=== PATIENT | female | born 1995 | race Caucasian/White ===

== ENCOUNTER 2019-10-05 17:26 | Emergency (ER) | payer MEDICAID ==
[2019-10-05] MEDS ORDERED: IBUPROFEN 600 MG TABLET PO ONE (17:37)
--- NOTE | 2019-10-05 17:40 | Emergency Department Record ---
History of Present Illness - General Chief Complaint: Laceration(s) Stated Complaint: HAND LAC Time Seen by Provider: 10/05/19 17:36 Source: Patient Mode of Arrival: Ambulatory Limitations: No limitations - History of Present Illness Initial Commments: 23 yo female presents after falling into a mirror with her right hand. The injury occurred about 3pm. She has numerous small lacerations that have stopped bleeding. She has some ulnar wrist pain with bruising as well. Her tetanus is up to date. She has some tingling from the bruise distal (no laceration in that area to suggest nerve laceration). She is right handed. -: Hour(s) (2) Extremity Location: Right: Wrist Place: Home Context: Accidental Associated Symptoms: None, Other (tingling) - Juan Coma Scale Eye Response: (4) Open spontaneously Motor Response: (6) Obeys commands Verbal Response: (5) Oriented Juan Total: 15 - Related Data Hx Tetanus Toxoid Vaccination: Yes Patient Tetanus UTD (within 5 yrs): Yes Home Medications Medication Instructions Recorded Confirmed Last Taken Phenytoin Sodium Extended 200 mg PO DAILY 10/05/19 10/05/19 10/05/19 [Dilantin] Sertraline HCl [Zoloft] 100 mg PO DAILY 10/05/19 10/05/19 10/04/19 Allergies Allergy/AdvReac Type Severity Reaction Status Date / Time No Known Drug Allergies Allergy Verified 10/05/19 17:38 Review of Systems Constitutional: Denies: Chills, Fever, Malaise, Weakness Eyes: Denies: Eye discharge ENT: Denies: Congestion, Throat pain Respiratory: Denies: Cough Cardiovascular: Denies: Chest pain, Palpitations, Syncope Endocrine: Denies: Fatigue Gastrointestinal: Denies: Abdominal pain, Diarrhea, Nausea, Vomiting Genitourinary: Denies: Dysuria, Urgency Musculoskeletal: Reports: Arthralgia, Joint swelling Skin: Reports: Other Neurological: Reports: Tingling. Denies: Numbness, Weakness Psychiatric: Denies: Anxiety Hematological/Lymphatic: Denies: Easy bleeding, Easy bruising Physical Exam - General General Appearance: Alert, Oriented x3, Cooperative, No acute distress Limitations: No limitations - Head Head exam: Atraumatic, Normal inspection - Eye Eye exam: Normal appearance. negative: Conjunctival injection - ENT ENT exam: Normal exam Ear exam: Normal external inspection Nasal Exam: Normal inspection Mouth exam: Normal external inspection - Neck Neck exam: Normal inspection - Cardiovascular Cardiovascular Exam: Regular rate Peripheral Pulses: 2+: Radial (R) - Rectal Rectal exam: Deferred - exam: Deferred - Extremities Extremities exam: negative: Normal inspection Image of Hand: 1 - 3mm abrasion 2 - 5mm superficial laceration 3 - 1cm flap laceration, superficial 4 - 3mm abrasion 5 - superfical abrasion 6 - tender, bruisinig, mild swelling 7 - tingling subjectively along ulnar side from the bruise distally, intact to light touch - Back Back exam: Reports: Full ROM. Denies: Tenderness - Neurological Neurological exam: Alert, Normal gait, Oriented X3. negative: Altered - Psychiatric Psychiatric exam: Normal affect, Normal mood. negative: Agitated, Anxious - Skin Skin exam: Abrasion, Other (multiple small lacerations) Type of lesion: Laceration Course - Reevaluation(s) Reevaluation #1: 10/05/19 17:56 No lacerations require closure No FB visible in the laceration Tetanus is up to date Disposition Disposition: Discharge Clinical Impression: Wrist sprain Qualifiers: Encounter type: initial encounter Laterality: right Qualified Code(s): S63.501A - Unspecified sprain of right wrist, initial encounter Lacerations of multiple sites of right arm Qualifiers: Encounter type: initial encounter Qualified Code(s): S41.111A - Laceration without foreign body of right upper arm, initial encounter Disposition: Home, Self-Care Condition: (1) Good Instructions: Wrist Sprain (ED) Additional Instructions: Clean the small lacerations daily with mild soap and water Be seen immediately if you have any concerns for infection or a glass that was not seen on today's Xray Ice any sore areas Forms: Patient Portal Access Time of Disposition: 18:35 Quality - Quality Measures Quality Measures: N/A - Blood Pressure Screening Does Patient Have Any of the Following: No Blood Pressure Classification: Hypertensive Reading Systolic Measurement: 146 Diastolic Measurement: 109 Screening for High Blood Pressure: < Pre-Hypertensive BP, F/U Documented > [G8950] Pre-Hypertensive Follow-up Interventions: Referral to alternative/primary care provider.
--- NOTE | 2019-10-05 18:31 | RADIOLOGY REPORT ---
EXAMINATION: Right Hand, Minimum Three Views EXAM DATE: 10/05/2019 6:14 PM TECHNIQUE: PA, lateral, and oblique INDICATION: laceration ro FB, broken mirror COMPARISON: None ENCOUNTER: Initial FINDINGS: No acute fracture or dislocation. Alignment of the hand is good. No radiopaque foreign body. IMPRESSION: 1. No acute fracture. 2. No radiopaque foreign body. Dictated by: Johnson Zuñiga MD on 10/05/2019 6:26 PM. .
== END 2019-10-05 18:44 | disposition home or self-care (01) ==
LOC: ER 17:26
DX: S61.212A Laceration without foreign body of right middle finger without damage to nail, initial encounter (principal); S61.214A Laceration without foreign body of right ring finger without damage to nail, initial encounter; S63.501A Unspecified sprain of right wrist, initial encounter; S60.811A Abrasion of right wrist, initial encounter; S60.511A Abrasion of right hand, initial encounter; W01.0XXA Fall on same level from slipping, tripping and stumbling without subsequent striking against object, initial encounter; Y93.E6 Activity, residential relocation; Y92.009 Unspecified place in unspecified non-institutional (private) residence as the place of occurrence of the external cause
CPT/HCPCS: 99284

== ENCOUNTER 2019-11-17 18:01 | Emergency (ER) | payer SELFPAY ==
[2019-11-17] MEDS ORDERED: KETOROLAC 30 MG/ML VIAL IVP ONE (18:15)
[2019-11-17] MEDS ORDERED: ONDANSETRON HCL IV 4 MG/2 ML VIAL IVP ONE (18:15)
[2019-11-17] MEDS ORDERED: 0.9 % SODIUM CHLORIDE 1000ML 1,000 ML IV SCH (18:15)
--- NOTE | 2019-11-17 18:23 | Emergency Department Record ---
History of Present Illness - General Chief complaint: Flank Pain Stated complaint: KIDNEY PAIN Time Seen by Provider: 11/17/19 18:02 Source: Patient Mode of Arrival: Ambulatory Limitations: No limitations - History of Present Illness Initial comments: 24 yo female presents to ED for evaluation of continued right sided flank/abdominal pain following diagnosis of a kidney stone 3 days ago at [facility]. Patient reports that she underwent US imaging demonstrating evidence for kidney stone, reports she was told that her stone would pass in 24 hours however the patient reports that she is not feeling well following her initial examination. Patient reports a long history of kidneys tones but has not seen a urologist previously. Patient denies fevers, chills, or dysuria symptoms on examination. Onset/Timin -: Days(s) Radiation: R flank Severity: Mild Severity scale (1-10): 4 Quality: Sharp Consistency: Constant Improves with: None Worsens with: None Patient : No Associated Symptoms: Denies other symptoms - Related Data Previous Rx's Medication Instructions Recorded Cephalexin [Keflex] 500 mg PO TID #21 cap 11/17/19 Allergies Allergy/AdvReac Type Severity Reaction Status Date / Time No Known Drug Allergies Allergy Verified 11/17/19 18:05 Travel/Exposure Screening - Travel/Exposure Within Last 30 Days Have you traveled within the last 30 days?: No - Additonal Travel/Exposure Details Have you been exposed to anyone with a communicable illness?: No Review of Systems Constitutional: Denies: Chills, Fever, Malaise, Night sweats Eyes: Denies: Eye discharge, Eye pain ENT: Denies: Congestion, Ear pain, Epistaxis Respiratory: Denies: Cough, Dyspnea Cardiovascular: Denies: Chest pain, Dyspnea on exertion Endocrine: Denies: Fatigue, Heat or cold intolerance Gastrointestinal: Reports: Abdominal pain, Nausea. Denies: Constipation, Vomiting Genitourinary: Denies: Incontinence, Retention Musculoskeletal: Reports: Back pain. Denies: Arthralgia, Gout Skin: Denies: Bruising, Change in color Neurological: Denies: Abnormal gait, Confusion, Headache, Tingling, Tremors Psychiatric: Denies: Anxiety Hematological/Lymphatic: Denies: Anemia, Blood Clots Past Medical History - SOCIAL HISTORY Smoking Status: Current every day smoker Alcohol Use: None Drug Use: None - RESPIRATORY Hx Respiratory Disorders: No - CARDIOVASCULAR Hx Cardio Disorders: No Comment:: murmer - NEURO Hx Neuro Disorders: Yes Hx Seizures: Yes - GI Hx GI Disorders: No - Hx Genitourinary Disorders: No - ENDOCRINE Hx Endocrine Disorders: No - MUSCULOSKELETAL Hx Musculoskeletal Disorders: No - PSYCH Hx Psych Problems: Yes Hx Anxiety: Yes - HEMATOLOGY/ONCOLOGY Hx Hematology/Oncology Disorders: No Family Medical History Any Significant Family History?: No Physical Exam - General General Appearance: Alert, Oriented x3, Cooperative, Mild distress Limitations: No limitations - Head Head exam: Atraumatic, Normocephalic, Normal inspection Head exam detail: negative: Abrasion, Contusion, San's sign, General tenderness, Hematoma, Laceration - Eye Eye exam: Normal appearance. negative: Conjunctival injection, Periorbital swelling, Periorbital tenderness, Scleral icterus - ENT Ear exam: negative: Auricular hematoma, Auricular trauma Nasal Exam: negative: Active bleeding, Discharge, Dried blood, Foreign body Mouth exam: negative: Drooling, Laceration, Muffled voice, Tongue elevation - Neck Neck exam: Normal inspection. negative: Meningismus, Tenderness - Respiratory Respiratory exam: Normal lung sounds bilaterally. negative: Respiratory distress, Rhonchi, Stridor, Wheezes - Cardiovascular Cardiovascular Exam: Regular rate, Normal rhythm, Normal heart sounds - GI/Abdominal GI/Abdominal exam: Soft. negative: Distended, Rebound, Rigid, Tenderness - Rectal Rectal exam: Deferred - exam: Deferred - Extremities Extremities exam: Normal inspection. negative: Pedal edema, Tenderness - Back Back exam: Reports: CVA tenderness (R). Denies: CVA tenderness (L) - Neurological Neurological exam: Alert, Normal gait, Oriented X3 - Psychiatric Psychiatric exam: Flat affect - Skin Skin exam: Normal color. negative: Abrasion Type of lesion: negative: abrasion Course Vital Signs 11/17/19 18:03 Temperature 98.0 F Pulse Rate 93 H Respiratory 20 Rate Blood Pressure 147/96 Pulse Ox 99 - Reevaluation(s) Reevaluation #1: 11/17/19 18:20 Patient was seen and examined WIll obtain UA, laboratory studies, and perform CT imaging to assess for possible retained ureteral calculi. Records from [facility] were ordered as well. Will administer Toradol, Zofran and reassess pending her ED work-up. Reevaluation #2: 11/17/19 18:32 Records were obtained from [facility], UA appears negative for infection US demonstrates mild hydronephrosis right c/w probable ureteral calculus. Will continue current ED evaluation as ordered. Reevaluation #3: 11/17/19 19:06 Laboratory studies were reviewed and appear grossly unremarkable for an acute process except for the following: UA appears contaminated Will attempt to obtain repeat UA. Reevaluation #4: 11/17/19 20:10 Repeat UA: >50 RBCs 2-5 WBCs 10-15 epithelial cells few Bacteria CT Abdomen and Pelvis: Mild right hydronephrosis No intra-ureteral calculi is present on examination Findings appear c/w recently passed right ureteral calculi Non-obstructing calculi in the kidneys bilaterally Patient as updated on all results, will treat for possible UTI vs. Pyelnephritis with Rocephin/Keflex No obstructing calculi is present on examination. Patient is in agreement with the plan of care as discussed. Medical Decision Making - Lab Data Result diagrams: 11/17/19 18:25 11/17/19 18:25 Disposition Disposition: Discharge Clinical Impression: Pyelonephritis Disposition: Home, Self-Care Condition: (2) Stable Instructions: Kidney Infection (ED) Additional Instructions: Return to ED if your symptoms worsen or if you have any concerns. Keflex, Motrin as directed. Follow-up with your family doctor in 3-5 days as directed. Prescriptions: Cephalexin [Keflex] 500 mg PO TID #21 cap Forms: Patient Portal Access Time of Disposition: 20:13 Quality - Quality Measures Quality Measures: N/A - Blood Pressure Screening Does Patient Have Any of the Following: No Blood Pressure Classification: Hypertensive Reading Systolic Measurement: 147 Diastolic Measurement: 96 Screening for High Blood Pressure: < First Hypertensive BP, F/U Documented > [G8950] First Hypertensive Follow-up Interventions: Referral to alternative/primary care provider.
[2019-11-17 18:38] LABS: ABSOLUTE NEUTROPHIL COUNT 6.76; BASO % 0.1 % (0-6); GRAN % 72.5 % (47-80); HEMATOCRIT 39.1 % (35.0-47.0); HEMOGLOBIN 13.8 gm/dl (11.6-16.0); LYMPH % 15.4 % (16-45); MEAN CELL VOLUME 88.7 fl (81-97); MEAN CORPUSCULAR HEMOGLOBIN 31.3 pg (27-33); MEAN CORPUSCULAR HGB CONC 35.3 g/dl (32-36); MEAN PLATELET VOLUME 9.6 fl (7.4-10.4); PLATELET COUNT 234 K/uL (130-400); RED BLOOD COUNT 4.41 M/uL (3.80-5.40); RED CELL DISTRIBUTION WIDTH 13.2 % (11.5-14.5); WHITE BLOOD COUNT W/O DIFF 9.3 K/uL (4.2-12.2)
[2019-11-17 18:51] LABS: BLOOD UREA NITROGEN 10 mg/dL (6-20)
[2019-11-17 18:52] LABS: CREATININE 1.1 mg/dL (0.5-0.9); EST GLOMERULAR FILTRATION RATE > 60 mL/min; TOTAL PROTEIN 6.9 g/dL (6.6-8.7)
[2019-11-17 18:54] LABS: GLUCOSE,RANDOM 79 mg/dL (74-109)
[2019-11-17 18:54] LABS: URINE BILIRUBIN NEGATIVE (NEGATIVE); URINE BLOOD LARGE (NEGATIVE); URINE COLOR YELLOW; URINE GLUCOSE (UA) NEGATIVE (NEGATIVE); URINE KETONE NEGATIVE (NEGATIVE); URINE LEUKOCYTE ESTERASE SMALL (NEGATIVE); URINE NITRITE NEGATIVE (NEGATIVE); URINE UROBILINOGEN 0.2 E.U./dL (0.20 - 1.00)
[2019-11-17 18:57] LABS: ALB/GLOB RATIO 1.3 (1.1-1.8); ALBUMIN 3.9 g/dL (4.0-5.0); ALKALINE PHOSPHATASE 68 U/L (35-104); ALT/SGPT 9 U/L (<33); AST/SGOT 15 U/L (10.0-35.0)
[2019-11-17 18:57] LABS: HCG,QUALITATIVE URINE NEGATIVE (NEGATIVE); URINE APPEARANCE CLOUDY
[2019-11-17 19:01] LABS: URINE AMORPHOUS SEDIMENT 3+; URINE BACTERIA 2+; URINE RBC 21 - 35 (NONE SEEN)
[2019-11-17 19:48] LABS: URINE APPEARANCE CLOUDY; URINE BILIRUBIN NEGATIVE (NEGATIVE); URINE BLOOD LARGE (NEGATIVE); URINE COLOR YELLOW; URINE GLUCOSE (UA) NEGATIVE (NEGATIVE); URINE KETONE NEGATIVE (NEGATIVE); URINE LEUKOCYTE ESTERASE SMALL (NEGATIVE); URINE NITRITE NEGATIVE (NEGATIVE); URINE PROTEIN NEGATIVE (NEGATIVE); URINE UROBILINOGEN 0.2 E.U./dL (0.20 - 1.00)
[2019-11-17 19:54] LABS: URINE RBC >50 (NONE SEEN)
--- NOTE | 2019-11-17 19:54 | CT SCAN REPORT ---
EXAMINATION: CT Abdomen and Pelvis without IV Contrast EXAM DATE: 11/17/2019 7:34 PM TECHNIQUE: Standard protocol CT imaging of the abdomen and pelvis was performed without intravenous c ontrast. INDICATION: Right sided flank pain COMPARISON: None ENCOUNTER: Initial- CT ABDOMEN AND PELVIS FINDINGS: Lung Bases: Included extent of the lung bases are clear. Hepatobiliary: The liver has a normal size with a smooth surface. The gallbladder is normal. Pancreas: The pancreas is normal. Spleen: The spleen is not enlarged. Adrenals: The adrenal glands are normal. Kidneys, Ureters, & Bladder: Both kidneys have a normal size and morphology. There is mild right hydr onephrosis. 3 mm nonobstructing right midpole calculus and 2.5 mm nonobstructing left upper pole calc ulus. There is mild prominence of the proximal right ureter. No convincing intraureteral calculus is demonstrated. Two small calcifications adjacent to the right aspect of the uterus are attributed to c alcified phleboliths. Left ureter is normal. No calculus is seen within the urinary bladder or at the ureterovesical junctions. Gastrointestinal: The stomach and small bowel are normal with no obstruction or inflammation. Appendi x is normal. The large bowel is within normal limits. Reproductive Organs: Unremarkable Lymphatic System: There is no adenopathy within the abdomen or pelvis. Vasculature: Normal caliber abdominal aorta Peritoneum: Small amount of free fluid in the cul-de-sac is considered physiologic. No free air or in flammation Abdominal wall & Musculoskeletal: No suspicious bone lesions. Assessment of the solid organs, soft tissues, and vascular structures is overall limited on noncontra st imaging, IMPRESSION: 1. Findings most in keeping with a recently passed right ureteral 2. A single nonobstructing small kidney stone at the right kidney and in the left kidney. Dictated by: Sorin Morales MD on 11/17/2019 7:43 PM. .
[2019-11-17 19:56] LABS: URINE BACTERIA FEW
[2019-11-17] MEDS ORDERED: CEFTRIAXONE 1GM/50ML BAG 1 GM/50 ML BAG IVPB ONE (20:12)
== END 2019-11-17 20:55 | disposition home or self-care (01) ==
LOC: ER 18:01
DX: N10 Acute pyelonephritis (principal); Z87.442 Personal history of urinary calculi; F17.210 Nicotine dependence, cigarettes, uncomplicated
CPT/HCPCS: 99284 ×2; 96365; 96375; 96361; 85025; 80053; 81001; 81025; 74176; J1885; J2405; J0696; J7030